=== PATIENT | male | born 1980 | race Two or more races ===

== ENCOUNTER → 2021-10-25 | Emergency (ER) | payer OTHER ==
[~2021-10-25] VITALS: Ht 177.8 cm; Wt 81.6 kg
[~2021-10-25] MED LIST: BUPROPION XL450 MG; TRAZODONE HCL150 MG PO; VENLAFAXINE H37.5 M2 PO; ZYPREXA5 MG PO
== END ==
LOC: ER 13:24 → EDSEX 13:24 → ER 14:18
DX: T40.5X5A Adverse effect of cocaine, initial encounter (principal); F14.129 Cocaine abuse with intoxication, unspecified; Z20.822 Contact with and (suspected) exposure to COVID-19